=== PATIENT | female | born 1965 | race Caucasian/White ===

== ENCOUNTER → 2017-04-26 | Outpatient (CLI) | payer BC ==
[~2017-04-26] MED LIST: CLARITIN 1010 MG/TAB PO; MULTIPLE VITAMI1 CAP PO
== END ==
LOC: MC.RAD 14:00
DX: Z12.31 Encounter for screening mammogram for malignant neoplasm of breast (principal); N60.11 Diffuse cystic mastopathy of right breast; N60.01 Solitary cyst of right breast

== ENCOUNTER → 2018-02-28 | Outpatient (CLI) | payer BC | LOC: MC.RAD 13:16 | DX: N60.11 Diffuse cystic mastopathy of right breast (principal); N60.01 Solitary cyst of right breast ==

== ENCOUNTER → 2018-08-21 | Outpatient (CLI) | payer BC | LOC: COL.RAD 08:01 | DX: M54.5 Low back pain (principal) ==

== ENCOUNTER → 2018-10-09 | Outpatient (CLI) | payer BC | LOC: MC.RAD 09:00 | DX: N60.01 Solitary cyst of right breast (principal) | CPT/HCPCS: G0279 ==

== ENCOUNTER 2019-09-21 06:09 | Day surgery (SDC) | payer BC ==
[~2019-09-21] VITALS: Ht 165.1 cm; Wt 57.1 kg
[2019-09-21 06:43] VITALS: BP 115/86; PULSE 85; TEMP 97.8
[2019-09-21] MEDS ORDERED: VESICARE10 MG PO (06:53)
[2019-09-21] MEDS ORDERED: ADVIL200 MG PO (06:54)
--- NOTE | 2019-09-21 06:56 | NUR ---
TO RM AT 0620- CALL LIGHT IN REACH AT BEDSIDE DR YOO INTO TALK WITH PATIENT AND .
[2019-09-21 07:45] VITALS: BP 107/70; PULSE 63; TEMP 97.7
--- NOTE | 2019-09-21 07:45 | NUR ---
Pt to [facility] via cart from [facility]. Pt drowsy. Pt ambulates to recliner with stand by assistance. Warm blankets provided. in room. Water provided. Will continue to monitor. Call light within reach. Pt falls back to sleep quickly.
[2019-09-21 08:00] VITALS: BP 105/82; PULSE 61
--- NOTE | 2019-09-21 08:00 | NUR ---
Pt sleeping respirations even and unlabored. in room. Will continue to monitor. Call light within reach.
[2019-09-21 08:15] VITALS: BP 83/54; PULSE 60
--- NOTE | 2019-09-21 08:15 | NUR ---
Pt continues to rest. Denies needs. Call light within reach.
[2019-09-21 08:30] VITALS: BP 111/81; PULSE 54
--- NOTE | 2019-09-21 08:30 | NUR ---
Pt continues to rest. Denies needs. Call light within reach.
--- NOTE | 2019-09-21 08:45 | NUR ---
IV site discontinued with all parts intact. Pt up to dress. Discharge instructions reviewed. Pt voices understanding. Call light within reach.
--- NOTE | 2019-09-21 08:50 | NUR ---
Pt escorted to private car via wheel chair. Pt accompanied home by her .
== END 2019-09-21 08:50 | disposition home or self-care (01) ==
LOC: SDCO 06:09
DX: Z12.11 Encounter for screening for malignant neoplasm of colon (principal); D12.0 Benign neoplasm of cecum; K63.5 Polyp of colon; K57.30 Diverticulosis of large intestine without perforation or abscess without bleeding; K62.89 Other specified diseases of anus and rectum
CPT/HCPCS: J2250; J3010; J7030

== ENCOUNTER → 2021-01-24 | Outpatient (CLI) | payer BC ==
[~2021-01-24] MED LIST changes: +ADVIL200 MG PO; +VESICARE10 MG PO
== END ==
LOC: MC.RAD 12:52
DX: Z12.31 Encounter for screening mammogram for malignant neoplasm of breast (principal); Z01.411 Encounter for gynecological examination (general) (routine) with abnormal findings

== ENCOUNTER → 2022-10-10 | Outpatient (CLI) | payer BC | LOC: MC.RAD 10:01 | DX: Z01.411 Encounter for gynecological examination (general) (routine) with abnormal findings (principal) ==